=== PATIENT | male | born 1955 | race Caucasian/White ===

== ENCOUNTER → 2018-07-15 15:20 | Outpatient (CLI) | payer OTHER, SELFPAY ==
[2018-07-15 15:45] LABS: Add Manual Diff / Slide Review NO; Basophils Percent Auto 0.6 % (0-2); Eosinophils Percent Auto 1.3 % (2-4); Hematocrit 45.4 % (41-53); Hemoglobin 15.4 g/dL (13.5-17.5); Lymphocytes Percent Auto 16.7 % (25-40); Mean Corpuscular Hemoglobin 31.4 PG (26-34); Mean Corpuscular Volume 92.5 fL (80-100); Monocytes Percent Auto 6.3 % (3-14); Neutrophils Absolute Auto 5600 /uL (1500-7000); Neutrophils Percent Auto 75.1 % (50-75); Platelet Count 289 X10^3/uL (150-400); Red Blood Cell Count 4.91 X10^6/uL (4.5-5.9); Red Cell Distribution Width 13.3 % (11.6-14.8); White Blood Cell Count 7.5 X10^3/uL (4.5-11.0)
[2018-07-15 16:05] LABS: Alanine Aminotransferase 25 IU/L (21-72); Albumin 4.6 g/dL (3.5-5.0); Alkaline Phosphatase 88 U/L (38-126); Aspartate Aminotransferase 20 IU/L (17-59); Bilirubin Total 0.6 mg/dL (0.2-1.3); Blood Urea Nitrogen 14 mg/dL (9-20); Calcium 9.8 mg/dL (8.4-10.2); Carbon Dioxide 30 mmol/L (22-32); Chloride 100 mmol/L (98-107); Cholesterol 163 mg/dL (140-199); Estimated Glomerular Filt Rate > 60.0 mL/min (>60); Globulin 2.3 g/dL (1.7-4.1); Glucose 105 mg/dL (80-110); HDL Cholesterol 62 mg/dL (40-60); HEMOLYSIS < 15 (0-50); LDL Cholesterol Calculated 82 mg/dL (<100); Potassium 4.8 mmol/L (3.4-5.1); Sodium 143 mmol/L (137-145); Total Protein 6.9 g/dL (6.3-8.2); Triglycerides 96 mg/dL (35-150)
[2018-07-15 16:36] LABS: Prostate Specific Antigen Scrn 1.89 ng/mL (0.1-4.0)
== END ==
PROVIDERS: PCP Internal Medicine; Visit Provider Internal Medicine
DX: Z00.00 Encounter for general adult medical examination without abnormal findings (principal); Z12.5 Encounter for screening for malignant neoplasm of prostate; Z13.6 Encounter for screening for cardiovascular disorders
CPT/HCPCS: 36415; 80053; 80061; 85025; G0103

== ENCOUNTER 2019-01-29 03:54 | Inpatient (IN) | payer OTHER, SELFPAY ==
[2019-01-29] VITALS (10 sets, daily range): BP systolic 112–145; BP diastolic 62–93; PULSE 80–112; RESP 16–23; TEMP 36.4–37.1; O2SAT 95–100; BMI 25.5; BMI 25.9
--- NOTE | 2019-01-29 04:08 | DI.RAD.S_ITS ---
PROCEDURE: XR CHEST 1V INDICATIONS: short of breath TECHNIQUE: One view of the chest was acquired. COMPARISON: [facility], CR, CHEST 1 VIEW, 07/25/2008, 20:07. [facility], CT, CT ANGIO CHEST PE PROTOCOL, 01/29/2019, 4:49. [facility], CR, CHEST 1 VIEW, 06/17/2013, 14:29. FINDINGS: Surgical changes and devices: None. Lungs and pleura: Left midlung infiltrate is seen. No right lung abnormality is seen. No pneumothorax or pleural effusions are seen. Mediastinum: Mediastinal contours appear normal. Heart size is normal. Bones and chest wall: No suspicious bony lesions. Age-appropriate bony degenerative changes are seen. Overlying soft tissues appear unremarkable. IMPRESSION: Left midlung infiltrate is seen, with better demonstrated on the subsequently performed chest CT. Note: No significant discrepancy from the preliminary report. Dictated by: Dagoberto Moss M.D. on 01/29/2019 at 7:46 Approved by: Dagoberto Moss M.D. on 01/29/2019 at 7:47
--- NOTE | 2019-01-29 04:09 | ED.SOB ---
HPI - SOB/Dyspnea General Chief Complaint: Shortness of Breath/Dyspnea Stated Complaint: hiccups x3 days Time Seen by Provider: 01/29/19 04:07 Source: patient Mode of arrival: ambulatory Limitations: no limitations History of Present Illness Patient is a 63-year-old male who presents with pickups ongoing for last 3 days. He says whenever he gets some he gets short of breath. He has not slept, which seems to be is because complaint. He does not really have any chest pain or palpitations. Every time he stands up or moves he is extremely lightheaded, he has not passed out. He was coughing quite violently a few days ago he was placed on Levaquin by his PCP for bronchitis. He actually has said that he has had a cough for the last 3 weeks. He had some body aches really has not noticed a fever. He says once he started the antibiotics a cough loosened up and he now is having more productive sputum. MD Complaint: shortness of breath Relieving factors: nothing Related Data Home Medications Medication Instructions Recorded Confirmed bupropion HCl XL 150 mg 24 hr 150 mg PO QDAY #30 tab 07/07/18 01/29/19 tablet, extended release dextroamphetamine-amphetamine ER 30 mg PO QAM 07/07/18 01/29/19 30 mg 24hr capsule,extend release sertraline 100 mg tablet 100 mg PO DAILY 07/07/18 01/29/19 Previous Rx's Medication Instructions Recorded levofloxacin 500 mg tablet 500 mg PO DAILY #7 tab 01/26/19 Allergies Allergy/AdvReac Type Severity Reaction Status Date / Time No Known Drug Allergies Allergy Verified 01/29/19 04:11 Review of Systems Review of Systems ROS Unobtainable: All systems reviewed & are unremarkable except as noted in HPI and below Constitutional Denies chills, Denies fever(s), Denies lethargy and Denies weakness ENT Ears, Nose, Mouth, and Throat: Denies change in voice, Denies neck pain and Denies sore throat Cardiovascular Denies chest pain, Denies irregular heart rhythm, Denies lightheadedness, Denies palpitations and Denies orthopnea Respiratory Reports as per HPI Gastrointestinal Gastrointestinal: Denies abdominal pain, Denies change in bowel habits, Denies diarrhea, Denies nausea and Denies vomiting Musculoskeletal Denies neck pain Integumentary/Breasts Denies pruritus, Denies erythema, Denies rash and Denies wounds Neurologic Denies weakness Endocrine Denies palpitations [facility] Medical History ADHD (Chronic) Generalized anxiety disorder (Chronic) Diverticulosis of colon (Chronic) Hx of adenomatous colonic polyps (Chronic) Near sighted (Chronic) Neck arthritis (Chronic) Cystocele (Resolved) Fever (Resolved) Hepatitis (Resolved) Inguinal hernia (Resolved) Measles (Resolved) Surgical History Anesthesia (Resolved) History of surgery (Resolved) Family History Brother Agent orange exposure Social History Smoking Status: Never smoker Family History Brother Agent orange exposure Social History Smoking Status: Never smoker Exam Initial Vital Signs Initial Vital Signs: Vital Signs Temperature 98.6 F 01/29/19 04:00 Pulse Rate 112 H 01/29/19 04:00 Respiratory Rate 16 01/29/19 04:00 Blood Pressure 145/93 H 01/29/19 04:00 Pulse Oximetry 100 01/29/19 04:00 GENERAL: Well-appearing, well-nourished and in no acute distress. HEENT: Head atraumatic,EOMI, pupils reactive, CARDIOVASCULAR: Regular rate and rhythm without murmurs, rubs or gallops. RESPIRATORY: Clear bilaterally no wheezing he actually does become quite dyspneic in conversation and sitting up. ABDOMEN: Soft, nontender. Normoactive bowel sounds all 4 quadrants. No guarding or rebound. EXTREMITIES: Normal range of motion, no clubbing or edema. Neurovascularly intact NEUROLOGICAL: Alert and oriented x4.Normal gait and speech. Cranial nerves II through XII grossly intact. SKIN: Warm, dry, no laceration, no petechiae, no rashes or lesions. Course Orders Ordered: ED Orders 01/29/19 04:07 Consult to Respiratory Therapy Evaluate & Treat EKG-12 Lead Stat 01/29/19 04:08 XR chest 1V Stat 01/29/19 04:15 B Type Natriuretic Peptide Stat Complete Blood Count AUTO DIFF Stat Comprehensive Metabolic Panel Stat D Dimer Stat Magnesium Stat Partial Thromboplastin Time Stat Procalcitonin Stat Prothrombin Time INR Stat Troponin & CK Cardiac Panel Stat 01/29/19 04:32 Blood Culture Stat 01/29/19 04:36 CT angio chest PE protocol Stat 01/29/19 04:37 Lactate (Lactic Acid) Stat Sodium Chloride (Normal Saline 0.9%) 1,000 mls @ 150 mls/hr IV CONT PILO Last Infusion: 01/29/19 06:02 Dose: 150 mls/hr Infusion: 01/29/19 05:27 Dose: 300 mls/hr Admin: 01/29/19 05:05 Dose: 150 mls/hr Discontinued Medications Azithromycin 500 mg/ Dextrose 250 mls @ 250 mls/hr IV NOW ONE Stop: 01/29/19 05:13 Last Admin: 01/29/19 06:02 Dose: 250 mls/hr Ceftriaxone Sodium/Dextrose (Rocephin) 1 gm in 50 mls @ 100 mls/hr IV NOW ONE Stop: 01/29/19 05:41 Last Infusion: 01/29/19 05:56 Dose: 0 mls/hr Admin: 01/29/19 05:26 Dose: 100 mls/hr Lorazepam (Ativan) 0.5 mg IV NOW ONE Stop: 01/29/19 06:06 Last Admin: 01/29/19 06:31 Dose: 0.5 mg Pantoprazole Sodium (Protonix) 40 mg IV NOW ONE Stop: 01/29/19 04:46 Last Admin: 01/29/19 05:05 Dose: 40 mg Vital Signs - 8 hr 01/29/19 04:00 01/29/19 04:30 01/29/19 05:11 Temperature 98.6 F Pulse Rate 112 H 112 H 108 H Respiratory Rate 16 Blood Pressure 145/93 H Blood Pressure [Right Arm] 138/68 136/67 Pulse Oximetry 100 01/29/19 06:00 01/29/19 06:30 Temperature Pulse Rate 105 H 103 H Respiratory Rate Blood Pressure Blood Pressure [Right Arm] 129/62 117/63 Pulse Oximetry MDM - SOB/Dyspnea Lab Data Attestation: I reviewed the patient's lab results. Result diagrams: 01/29/19 04:15 01/29/19 04:15 Lab Results 07/01/29/19 01/29/19 Range/Units 04:15 04:15 04:15 WBC 19.3 H (4.5-11.0) X10^3/uL RBC 4.27 L (4.5-5.9) X10^6/uL Hgb 12.2 L (13.5-17.5) g/dL Hct 36.6 L (41-53) % MCV 85.7 (80-100) fL MCH 28.5 (26-34) PG MCHC 33.3 (30-36) % RDW 14.0 (11.6-14.8) % Plt Count 493 H (150-400) X10^3/uL Neut % (Auto) 90.7 H (50-75) % Lymph % (Auto) 4.7 L (25-40) % [place] % (Auto) 4.1 (3-14) % Eos % (Auto) 0.2 L (2-4) % Baso % (Auto) 0.3 (0-2) % Neut # (Auto) 69229 H (0935-4121) /uL Lymph # (Auto) 900 L (6947-6972) /uL [place] # (Auto) 800 (0-900) /uL Eos # (Auto) 0 (0-450) /uL Baso # (Auto) 100 (0-100) /uL PT 17.8 H (10.1-12.7) SECONDS INR 1.5 H (0.9-1.3) APTT 31 (26.4-36.2) SECONDS D-Dimer (<230) ng/mL Sodium (137-145) mmol/L Potassium (3.4-5.1) mmol/L Chloride (98-107) mmol/L Carbon Dioxide (22-32) mmol/L BUN (9-20) mg/dL Creatinine (0.66-1.25) mg/dL Estimated GFR (>60) mL/min BUN/Creatinine Ratio (6-22) Glucose (80-110) mg/dL Lactate (0.7-2.1) mmol/L Calcium (8.4-10.2) mg/dL Magnesium 1.8 (1.6-2.3) mg/dL Total Bilirubin (0.2-1.3) mg/dL AST (17-59) IU/L ALT (21-72) IU/L Alkaline Phosphatase (38-126) U/L Total Creatine Kinase 259 H (55-170) U/L CK-MB (CK-2) 2.51 H (<2.37) ng/mL CK-MB (CK-2) Rel Index 1.0 L (1.5-5.0) % Troponin I < 0.012 (0.01-0.034) ng/mL B-Natriuretic Peptide < 100 (<100) Total Protein (6.3-8.2) g/dL Albumin (3.5-5.0) g/dL Globulin (1.7-4.1) g/dL Albumin/Globulin Ratio (1.0-2.8) Procalcitonin (<0.5) ng/mL 01/29/19 01/29/19 01/29/19 Range/Units 04:15 04:15 04:15 WBC (4.5-11.0) X10^3/uL RBC (4.5-5.9) X10^6/uL Hgb (13.5-17.5) g/dL Hct (41-53) % MCV (80-100) fL MCH (26-34) PG MCHC (30-36) % RDW (11.6-14.8) % Plt Count (150-400) X10^3/uL Neut % (Auto) (50-75) % Lymph % (Auto) (25-40) % [place] % (Auto) (3-14) % Eos % (Auto) (2-4) % Baso % (Auto) (0-2) % Neut # (Auto) (0631-4822) /uL Lymph # (Auto) (5594-8592) /uL [place] # (Auto) (0-900) /uL Eos # (Auto) (0-450) /uL Baso # (Auto) (0-100) /uL PT (10.1-12.7) SECONDS INR (0.9-1.3) APTT (26.4-36.2) SECONDS D-Dimer 1007 H (<230) ng/mL Sodium 137 (137-145) mmol/L Potassium 3.9 (3.4-5.1) mmol/L Chloride 97 L (98-107) mmol/L Carbon Dioxide 24 (22-32) mmol/L BUN 14 (9-20) mg/dL Creatinine 0.90 (0.66-1.25) mg/dL Estimated GFR > 60.0 (>60) mL/min BUN/Creatinine Ratio 15.6 (6-22) Glucose 130 H (80-110) mg/dL Lactate (0.7-2.1) mmol/L Calcium 9.3 (8.4-10.2) mg/dL Magnesium (1.6-2.3) mg/dL Total Bilirubin 0.8 (0.2-1.3) mg/dL AST 24 (17-59) IU/L ALT 28 (21-72) IU/L Alkaline Phosphatase 92 (38-126) U/L Total Creatine Kinase (55-170) U/L CK-MB (CK-2) (<2.37) ng/mL CK-MB (CK-2) Rel Index (1.5-5.0) % Troponin I (0.01-0.034) ng/mL B-Natriuretic Peptide (<100) Total Protein 6.8 (6.3-8.2) g/dL Albumin 3.6 (3.5-5.0) g/dL Globulin 3.2 (1.7-4.1) g/dL Albumin/Globulin Ratio 1.1 (1.0-2.8) Procalcitonin 0.07 (<0.5) ng/mL 01/29/19 Range/Units 04:37 WBC (4.5-11.0) X10^3/uL RBC (4.5-5.9) X10^6/uL Hgb (13.5-17.5) g/dL Hct (41-53) % MCV (80-100) fL MCH (26-34) PG MCHC (30-36) % RDW (11.6-14.8) % Plt Count (150-400) X10^3/uL Neut % (Auto) (50-75) % Lymph % (Auto) (25-40) % [place] % (Auto) (3-14) % Eos % (Auto) (2-4) % Baso % (Auto) (0-2) % Neut # (Auto) (5827-1458) /uL Lymph # (Auto) (8995-3800) /uL [place] # (Auto) (0-900) /uL Eos # (Auto) (0-450) /uL Baso # (Auto) (0-100) /uL PT (10.1-12.7) SECONDS INR (0.9-1.3) APTT (26.4-36.2) SECONDS D-Dimer (<230) ng/mL Sodium (137-145) mmol/L Potassium (3.4-5.1) mmol/L Chloride (98-107) mmol/L Carbon Dioxide (22-32) mmol/L BUN (9-20) mg/dL Creatinine (0.66-1.25) mg/dL Estimated GFR (>60) mL/min BUN/Creatinine Ratio (6-22) Glucose (80-110) mg/dL Lactate 1.4 (0.7-2.1) mmol/L Calcium (8.4-10.2) mg/dL Magnesium (1.6-2.3) mg/dL Total Bilirubin (0.2-1.3) mg/dL AST (17-59) IU/L ALT (21-72) IU/L Alkaline Phosphatase (38-126) U/L Total Creatine Kinase (55-170) U/L CK-MB (CK-2) (<2.37) ng/mL CK-MB (CK-2) Rel Index (1.5-5.0) % Troponin I (0.01-0.034) ng/mL B-Natriuretic Peptide (<100) Total Protein (6.3-8.2) g/dL Albumin (3.5-5.0) g/dL Globulin (1.7-4.1) g/dL Albumin/Globulin Ratio (1.0-2.8) Procalcitonin (<0.5) ng/mL Imaging Data Chest x-ray: Attestation: I personally reviewed and interpreted this imaging study as follows: My impression: Left middle lobe pneumonia CT scan - chest: Radiologist's impression: shift supervisor melting report. Large masslike consolidation within the left upper lobe most consistent with pneumonia. Underlying mass cannot be excluded and followup complete resolution is recommended. Small right upper lobe ground-glass opacities likely small pneumonia. Small pericardial effusion. Nonemergent findings described above. No pulmonary emboli. ECG Data Attestation: I personally reviewed and interpreted this ECG as follows: Prior ECG tracings: available for review Interpretation: Sinus tachycardia [address] changes MDM Narrative Medical decision making narrative: No hiccups appreciated upon initial questioning, however they started soon after. X-ray shows all large masslike area. D-dimer is also elevated and he is quite dyspneic with conversation. Will get CT. CT confirms pneumonia no pulmonary embolism. He has leukocytosis of 19 but is not septic in appearance heart rate is improving with IV fluids however still complaining of the hiccups and seems quite frustrated. Given Ativan for hiccups. His failed outpatient treatment he did get Rocephin and azithromycin. he is not hypoxic. Dr. Schroeder notified of patient's symptoms test results. Agrees with admission. Discharge Plan Departure Patient Disposition: Admitted As Inpatient Clinical Impression: Pneumonia Qualifiers: Pneumonia type: due to unspecified organism Laterality: left Lung location: upper lobe of lung Qualified Code(s): J18.1 - Lobar pneumonia, unspecified organism Referrals: Bright Ruano MD [Primary Care Provider] - Admit Date/Time: 01/29/19 06:44 Admit Provider: Annalise Schroeder
--- NOTE | 2019-01-29 04:13 | ED_ITS ---
HPI - SOB/Dyspnea General Chief Complaint: Shortness of Breath/Dyspnea Stated Complaint: hiccups x3 days Time Seen by Provider: 01/29/19 04:07 Source: patient Mode of arrival: ambulatory Limitations: no limitations History of Present Illness Patient is a 63-year-old male who presents with pickups ongoing for last 3 days. He says whenever he gets some he gets short of breath. He has not slept, which seems to be is because complaint. He does not really have any chest pain or palpitations. Every time he stands up or moves he is extremely lightheaded, he has not passed out. He was coughing quite violently a few days ago he was place d on Levaquin by his PCP for bronchitis. He actually has said that he has had a cough for the last 3 weeks. He had some body aches really has not noticed a fever. He says once he started the antibiotics a cough loosened up and he now is having more productive sputum. MD Complaint: shortness of breath Relieving factors: nothing Related Data Home Medications Medication Instructions Recorded Confirmed bupropion HCl XL 150 mg 24 hr 150 mg PO QDAY #30 tab 07/07/18 01/29/19 tablet, extended release dextroamphetamine-amphetamine ER 30 mg PO QAM 07/07/18 01/29/19 30 mg 24hr capsule,extend release sertraline 100 mg tablet 100 mg PO DAILY 07/07/18 01/29/19 Previous Rx's Medication Instructions Recorded levofloxacin 500 mg tablet 500 mg PO DAILY #7 tab 01/26/19 Allergies Allergy/AdvReac Type Severity Reaction Status Date / Time No Known Drug Allergies Allergy Verified 01/29/19 04:11 Review of Systems Review of Systems ROS Unobtainable: All systems reviewed & are unremarkable except as noted in HPI and below Constitutional Denies chills, Denies fever(s), Denies lethargy and Denies weakness ENT Ears, Nose, Mouth, and Throat: Denies change in voice, Denies neck pain and Denies sore throat Cardiovascular Denies chest pain, Denies irregular heart rhythm, Denies lightheadedness, Denies palpitations and Denies orthopnea Respiratory Reports as per HPI Gastrointestinal Gastrointestinal: Denies abdominal pain, Denies change in bowel habits, Denies diarrhea, Denies nausea and Denies vomiting Musculoskeletal Denies neck pain Integumentary/Breasts Denies pruritus, Denies erythema, Denies rash and Denies wounds Neurologic Denies weakness Endocrine Denies palpitations [facility] Medical History ADHD (Chronic) Generalized anxiety disorder (Chronic) Diverticulosis of colon (Chronic) Hx of adenomatous colonic polyps (Chronic) Near sighted (Chronic) Neck arthritis (Chronic) Cystocele (Resolved) Fever (Resolved) Hepatitis (Resolved) Inguinal hernia (Resolved) Measles (Resolved) Surgical History Anesthesia (Resolved) History of surgery (Resolved) Family History Brother Agent orange exposure Social History Smoking Status: Never smoker Family History Brother Agent orange exposure Social History Smoking Status: Never smoker Exam Initial Vital Signs Initial Vital Signs: Vital Signs Temperature 98.6 F 01/29/19 04:00 Pulse Rate 112 H 01/29/19 04:00 Respiratory Rate 16 01/29/19 04:00 Blood Pressure 145/93 H 01/29/19 04:00 Pulse Oximetry 100 01/29/19 04:00 GENERAL: Well-appearing, well-nourished and in no acute distress. HEENT: Head atraumatic,EOMI, pupils reactive, CARDIOVASCULAR: Regular rate and rhythm without murmurs, rubs or gallops. RESPIRATORY: Clear bilaterally no wheezing he actually does become quite dyspneic in conversation and sitting up. ABDOMEN: Soft, nontender. Normoactive bowel sounds all 4 quadrants. No guarding or rebound. EXTREMITIES: Normal range of motion, no clubbing or edema. Neurovascularly intact NEUROLOGICAL: Alert and oriented x4.Normal gait and speech. Cranial nerves II through XII grossly intact. SKIN: Warm, dry, no laceration, no petechiae, no rashes or lesions. Course Orders Ordered: ED Orders 01/29/19 04:07 Consult to Respiratory Therapy Evaluate & Treat EKG-12 Lead Stat 01/29/19 04:08 XR chest 1V Stat 01/29/19 04:15 B Type Natriuretic Peptide Stat Complete Blood Count AUTO DIFF Stat Comprehensive Metabolic Panel Stat D Dimer Stat Magnesium Stat Partial Thromboplastin Time Stat Procalcitonin Stat Prothrombin Time INR Stat Troponin & CK Cardiac Panel Stat 01/29/19 04:32 Blood Culture Stat 01/29/19 04:36 CT angio chest PE protocol Stat 01/29/19 04:37 Lactate (Lactic Acid) Stat Sodium Chloride (Normal Saline 0.9%) 1,000 mls @ 150 mls/hr IV CONT PILO Last Infusion: 01/29/19 06:02 Dose: 150 mls/hr Infusion: 01/29/19 05:27 Dose: 300 mls/hr Admin: 01/29/19 05:05 Dose: 150 mls/hr Discontinued Medications Azithromycin 500 mg/ Dextrose 250 mls @ 250 mls/hr IV NOW ONE Stop: 01/29/19 05:13 Last Admin: 01/29/19 06:02 Dose: 250 mls/hr Ceftriaxone Sodium/Dextrose (Rocephin) 1 gm in 50 mls @ 100 mls/hr IV NOW ONE Stop: 01/29/19 05:41 Last Infusion: 01/29/19 05:56 Dose: 0 mls/hr Admin: 01/29/19 05:26 Dose: 100 mls/hr Lorazepam (Ativan) 0.5 mg IV NOW ONE Stop: 01/29/19 06:06 Last Admin: 01/29/19 06:31 Dose: 0.5 mg Pantoprazole Sodium (Protonix) 40 mg IV NOW ONE Stop: 01/29/19 04:46 Last Admin: 01/29/19 05:05 Dose: 40 mg Vital Signs - 8 hr 01/29/19 04:00 01/29/19 04:30 01/29/19 05:11 Temperature 98.6 F Pulse Rate 112 H 112 H 108 H Respiratory Rate 16 Blood Pressure 145/93 H Blood Pressure [Right Arm] 138/68 136/67 Pulse Oximetry 100 01/29/19 06:00 01/29/19 06:30 Temperature Pulse Rate 105 H 103 H Respiratory Rate Blood Pressure Blood Pressure [Right Arm] 129/62 117/63 Pulse Oximetry MDM - SOB/Dyspnea Lab Data Attestation: I reviewed the patient's lab results. Result diagrams: 01/29/19 04:15 01/29/19 04:15 Lab Results 0701/29/19 01/29/19 Range/Units 04:15 04:15 04:15 WBC 19.3 H (4.5-11.0) X10^3/uL RBC 4.27 L (4.5-5.9) X10^6/uL Hgb 12.2 L (13.5-17.5) g/dL Hct 36.6 L (41-53) % MCV 85.7 (80-100) fL MCH 28.5 (26-34) PG MCHC 33.3 (30-36) % RDW 14.0 (11.6-14.8) % Plt Count 493 H (150-400) X10^3/uL Neut % (Auto) 90.7 H (50-75) % Lymph % (Auto) 4.7 L (25-40) % [place] % (Auto) 4.1 (3-14) % Eos % (Auto) 0.2 L (2-4) % Baso % (Auto) 0.3 (0-2) % Neut # (Auto) 60221 H (0305-4850) /uL Lymph # (Auto) 900 L (0509-1425) /uL [place] # (Auto) 800 (0-900) /uL Eos # (Auto) 0 (0-450) /uL Baso # (Auto) 100 (0-100) /uL PT 17.8 H (10.1-12.7) SECONDS INR 1.5 H (0.9-1.3) APTT 31 (26.4-36.2) SECONDS D-Dimer (<230) ng/mL Sodium (137-145) mmol/L Potassium (3.4-5.1) mmol/L Chloride (98-107) mmol/L Carbon Dioxide (22-32) mmol/L BUN (9-20) mg/dL Creatinine (0.66-1.25) mg/dL Estimated GFR (>60) mL/min BUN/Creatinine Ratio (6-22) Glucose (80-110) mg/dL Lactate (0.7-2.1) mmol/L Calcium (8.4-10.2) mg/dL Magnesium 1.8 (1.6-2.3) mg/dL Total Bilirubin (0.2-1.3) mg/dL AST (17-59) IU/L ALT (21-72) IU/L Alkaline Phosphatase (38-126) U/L Total Creatine Kinase 259 H (55-170) U/L CK-MB (CK-2) 2.51 H (<2.37) ng/mL CK-MB (CK-2) Rel Index 1.0 L (1.5-5.0) % Troponin I < 0.012 (0.01-0.034) ng/mL B-Natriuretic Peptide < 100 (<100) Total Protein (6.3-8.2) g/dL Albumin (3.5-5.0) g/dL Globulin (1.7-4.1) g/dL Albumin/Globulin Ratio (1.0-2.8) Procalcitonin (<0.5) ng/mL 01/29/19 01/29/19 01/29/19 Range/Units 04:15 04:15 04:15 WBC (4.5-11.0) X10^3/uL RBC (4.5-5.9) X10^6/uL Hgb (13.5-17.5) g/dL Hct (41-53) % MCV (80-100) fL MCH (26-34) PG MCHC (30-36) % RDW (11.6-14.8) % Plt Count (150-400) X10^3/uL Neut % (Auto) (50-75) % Lymph % (Auto) (25-40) % [place] % (Auto) (3-14) % Eos % (Auto) (2-4) % Baso % (Auto) (0-2) % Neut # (Auto) (2776-9642) /uL Lymph # (Auto) (1342-2192) /uL [place] # (Auto) (0-900) /uL Eos # (Auto) (0-450) /uL Baso # (Auto) (0-100) /uL PT (10.1-12.7) SECONDS INR (0.9-1.3) APTT (26.4-36.2) SECONDS D-Dimer 1007 H (<230) ng/mL Sodium 137 (137-145) mmol/L Potassium 3.9 (3.4-5.1) mmol/L Chloride 97 L (98-107) mmol/L Carbon Dioxide 24 (22-32) mmol/L BUN 14 (9-20) mg/dL Creatinine 0.90 (0.66-1.25) mg/dL Estimated GFR > 60.0 (>60) mL/min BUN/Creatinine Ratio 15.6 (6-22) Glucose 130 H (80-110) mg/dL Lactate (0.7-2.1) mmol/L Calcium 9.3 (8.4-10.2) mg/dL Magnesium (1.6-2.3) mg/dL Total Bilirubin 0.8 (0.2-1.3) mg/dL AST 24 (17-59) IU/L ALT 28 (21-72) IU/L Alkaline Phosphatase 92 (38-126) U/L Total Creatine Kinase (55-170) U/L CK-MB (CK-2) (<2.37) ng/mL CK-MB (CK-2) Rel Index (1.5-5.0) % Troponin I (0.01-0.034) ng/mL B-Natriuretic Peptide (<100) Total Protein 6.8 (6.3-8.2) g/dL Albumin 3.6 (3.5-5.0) g/dL Globulin 3.2 (1.7-4.1) g/dL Albumin/Globulin Ratio 1.1 (1.0-2.8) Procalcitonin 0.07 (<0.5) ng/mL 01/29/19 Range/Units 04:37 WBC (4.5-11.0) X10^3/uL RBC (4.5-5.9) X10^6/uL Hgb (13.5-17.5) g/dL Hct (41-53) % MCV (80-100) fL MCH (26-34) PG MCHC (30-36) % RDW (11.6-14.8) % Plt Count (150-400) X10^3/uL Neut % (Auto) (50-75) % Lymph % (Auto) (25-40) % [place] % (Auto) (3-14) % Eos % (Auto) (2-4) % Baso % (Auto) (0-2) % Neut # (Auto) (6162-5439) /uL Lymph # (Auto) (4880-2922) /uL [place] # (Auto) (0-900) /uL Eos # (Auto) (0-450) /uL Baso # (Auto) (0-100) /uL PT (10.1-12.7) SECONDS INR (0.9-1.3) APTT (26.4-36.2) SECONDS D-Dimer (<230) ng/mL Sodium (137-145) mmol/L Potassium (3.4-5.1) mmol/L Chloride (98-107) mmol/L Carbon Dioxide (22-32) mmol/L BUN (9-20) mg/dL Creatinine (0.66-1.25) mg/dL Estimated GFR (>60) mL/min BUN/Creatinine Ratio (6-22) Glucose (80-110) mg/dL Lactate 1.4 (0.7-2.1) mmol/L Calcium (8.4-10.2) mg/dL Magnesium (1.6-2.3) mg/dL Total Bilirubin (0.2-1.3) mg/dL AST (17-59) IU/L ALT (21-72) IU/L Alkaline Phosphatase (38-126) U/L Total Creatine Kinase (55-170) U/L CK-MB (CK-2) (<2.37) ng/mL CK-MB (CK-2) Rel Index (1.5-5.0) % Troponin I (0.01-0.034) ng/mL B-Natriuretic Peptide (<100) Total Protein (6.3-8.2) g/dL Albumin (3.5-5.0) g/dL Globulin (1.7-4.1) g/dL Albumin/Globulin Ratio (1.0-2.8) Procalcitonin (<0.5) ng/mL Imaging Data Chest x-ray: Attestation: I personally reviewed and interpreted this imaging study as follows: My impression: Left middle lobe pneumonia CT scan - chest: 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 Large masslike consolidation within the left upper lobe most consistent with pneumonia. Underlying mass cannot be excluded and followup complete resolution is recommended. Small right upper lobe ground-glass opacities likely small pneumonia. Small pericardial effusion. Nonemergent findings described above. No pulmonary emboli. ECG Data Attestation: I personally reviewed and interpreted this ECG as follows: Prior ECG tracings: available for review Interpretation: Sinus tachycardia [address] changes MDM Narrative Medical decision making narrative: No hiccups appreciated upon initial questioning, however they started soon after. X-ray shows all large masslike area. D-dimer is also elevated and he is quite dyspneic with conversation. Will get CT. CT confirms pneumonia no pulmonary embolism. He has leukocytosis of 19 but is not septic in appearance heart rate is improving with IV fluids however still complaining of the hiccups and seems quite frustrated. Given Ativan for hiccups. His failed outpatient treatment he did get Rocephin and azithromycin. he is not hypoxic. Dr. Schroeder notified of patient's symptoms test results. Agrees with admission. Discharge Plan Departure Patient Disposition: Admitted As Inpatient Clinical Impression: Pneumonia Qualifiers: Pneumonia type: due to unspecified organism Laterality: left Lung location: upper lobe of lung Qualified Code(s): J18.1 - Lobar pneumonia, unspecified organism Referrals: Bright Ruano MD [Primary Care Provider] - Admit Date/Time: 01/29/19 06:44 Admit Provider: Annalise Schroeder
[2019-01-29 04:25] LABS: Add Manual Diff / Slide Review NO; Basophils Absolute Auto 100 /uL (0-100); Basophils Percent Auto 0.3 % (0-2); Eosinophils Absolute Auto 0 /uL (0-450); Eosinophils Percent Auto 0.2 % (2-4); Hematocrit 36.6 % (41-53); Hemoglobin 12.2 g/dL (13.5-17.5); Lymphocytes Absolute Auto 900 /uL (1100-4500); Lymphocytes Percent Auto 4.7 % (25-40); Mean Corpuscular HGB Conc 33.3 % (30-36); Mean Corpuscular Hemoglobin 28.5 PG (26-34); Mean Corpuscular Volume 85.7 fL (80-100); Monocytes Absolute Auto 800 /uL (0-900); Monocytes Percent Auto 4.1 % (3-14); Neutrophils Absolute Auto 17500 /uL (1500-7000); Neutrophils Percent Auto 90.7 % (50-75); Platelet Count 493 X10^3/uL (150-400); Red Blood Cell Count 4.27 X10^6/uL (4.5-5.9); White Blood Cell Count 19.3 X10^3/uL (4.5-11.0)
[2019-01-29 04:27] LABS: INR 1.5 (0.9-1.3); Prothrombin Time 17.8 SECONDS (10.1-12.7)
[2019-01-29 04:30] LABS: PTT Partial Thromboplastin Tim 31 SECONDS (26.4-36.2)
[2019-01-29 04:33] LABS: Creatine Kinase 259 U/L (55-170); Magnesium 1.8 mg/dL (1.6-2.3)
[2019-01-29 04:34] LABS: Alanine Aminotransferase 28 IU/L (21-72); Albumin 3.6 g/dL (3.5-5.0); Albumin Globulin Ratio 1.1 (1.0-2.8); Alkaline Phosphatase 92 U/L (38-126); Aspartate Aminotransferase 24 IU/L (17-59); BUN Creatinine Ratio 15.6 (6-22); Bilirubin Total 0.8 mg/dL (0.2-1.3); Blood Urea Nitrogen 14 mg/dL (9-20); Calcium 9.3 mg/dL (8.4-10.2); Carbon Dioxide 24 mmol/L (22-32); Chloride 97 mmol/L (98-107); Estimated Glomerular Filt Rate > 60.0 mL/min (>60); Globulin 3.2 g/dL (1.7-4.1); Glucose 130 mg/dL (80-110); HEMOLYSIS < 15 (0-50); Potassium 3.9 mmol/L (3.4-5.1); Sodium 137 mmol/L (137-145); Total Protein 6.8 g/dL (6.3-8.2)
--- NOTE | 2019-01-29 04:36 | DI.CT.S_ITS ---
PROCEDURE: CT ANGIO CHEST PE PROTOCOL INDICATIONS: short of breath TECHNIQUE: After the administration of intravenous contrast, 2 mm thick sections acquired from the pulmonary apices to the posterior costophrenic angles. 3-dimensional maximum intensity projection (MIP) coronal and sagittal reformats were then acquired through the thorax. For radiation dose reduction, the following was used: automated exposure control, adjustment of mA and/or kV according to patient size. COMPARISON: [facility], CR, XR CHEST 1V, 01/29/2019, 4:17. FINDINGS: Image quality: Excellent. Pulmonary arteries: Pulmonary arteries are normal in size, and demonstrate no intraluminal filling defects to suggest central pulmonary embolism. Lungs and pleura: Dense infiltrate can be seen within the lingula involving the left infrahilar region, which measures up to 7.5 cm. Bronchograms are seen. Within the right upper lobe, with mild scattered areas of groundglass opacity can be seen. The lungs otherwise appear clear. No pleural effusions or pneumothorax. Central and peripheral airways are patent. Mediastinum: Heart size is normal. There is a small pericardial effusion. Moderately enlarged mediastinal lymph nodes are seen, including a subcarinal lymph node measuring 2.4 x 1.9 cm. Thoracic aorta is normal in caliber and enhancement. Esophagus is normal in caliber. There is a small hiatal hernia. Bones and chest wall: No suspicious bony lesions. Ribs and thoracic spine appear intact throughout. Thyroid gland demonstrates no significant CT abnormality. No axillary or supraclavicular adenopathy. Incidental note is made of bilateral gynecomastia. Abdomen: A prominent amount of stool can be seen within the colon. Visualized upper abdominal solid organs appear normal in the early arterial phase of enhancement. IMPRESSION: Negative for pulmonary embolism. Lingular infiltrate, with air bronchograms. Followup studies are recommended to resolution to evaluate for potential underlying mass in this patient. Moderately enlarged mediastinal lymph nodes are seen. Minimal infiltrate within the right upper lobe. Small pericardial effusion. Incidental note is made of: Gynecomastia Small hiatal hernia Prominent colonic stool Note: No significant discrepancy from the preliminary report. Dictated by: Dagoberto Moss M.D. on 01/29/2019 at 7:29 Approved by: Dagoberto Moss M.D. on 01/29/2019 at 7:34
[2019-01-29 04:38] LABS: D Dimer 1007 ng/mL (<230)
[2019-01-29 04:45] LABS: Troponin I < 0.012 ng/mL (0.01-0.034)
[2019-01-29 04:46] LABS: B Type Natriuretic Peptide < 100 (<100)
[2019-01-29 04:48] LABS: Creatine Kinase MB 2.51 ng/mL (<2.37)
[2019-01-29 04:50] LABS: Procalcitonin 0.07 ng/mL (<0.5)
[2019-01-29 04:59] LABS: Lactate (Lactic Acid) 1.4 mmol/L (0.7-2.1)
[2019-01-29] MEDS: PANTOPRAZOLE 40 MG VIAL IV (05:05)
[2019-01-29] MEDS: SODIUM CHLORIDE 0.9% 1,000 ML 150 ML IV ×4 (05:05→21:56)
[2019-01-29] MEDS: CEFTRIAXONE 1 GM/50 ML FROZ.PIGGY IV (05:26)
--- NOTE | 2019-01-29 05:27 | PC.NURSE ---
verbal order read back to increase to bolus rate. Rate set at 300ml/hr for concurrent administration with abx.
[2019-01-29] MEDS: AZITHROMYCIN 500 MG in DEXTROSE 5% IN WATER 250 ML IV (06:02)
--- NOTE | 2019-01-29 06:02 | PC.NURSE ---
NS rate changed to 150ml/hr for concurrent infusion with azithromycin
[2019-01-29] MEDS: LORazepam 2 MG/ML INJ 0.5 MG IV (06:31)
--- NOTE | 2019-01-29 06:37 | PC.NURSE ---
pt presented with no hiccups yet reorted he had hicups for three days preventing him from sleeping. within 10 minutes of being in deartment hiccups returned and have persisted throughout his stay. At times he appears to have severe hicups that cause a gasping effect for air. Provider notified and ordered ativan.
--- NOTE | 2019-01-29 09:07 | PC.ADMIT ---
[email or web address] Admission Note: The patient,Prem Churchill,63 y/o, was given written information regarding hospital policies, unit procedures and contact persons. Patient's smoking status: Never smoker. Vital Signs - 8 hr 01/29/19 04:00 01/29/19 04:30 01/29/19 05:11 Temperature 98.6 F Pulse Rate 112 H 112 H 108 H Respiratory Rate 16 Blood Pressure 145/93 H Blood Pressure [Right Arm] 138/68 136/67 Pulse Oximetry 100 01/29/19 06:00 01/29/19 06:30 01/29/19 07:35 Temperature Pulse Rate 105 H 103 H 98 H Respiratory Rate 20 Blood Pressure 122/72 Blood Pressure [Right Arm] 129/62 117/63 Pulse Oximetry 99 01/29/19 07:45 Temperature 98.7 F Pulse Rate 102 H Respiratory Rate 23 Blood Pressure 135/75 Blood Pressure [Right Arm] Pulse Oximetry 98 Rec'd pt to room 106 from ED via stretcher in no acute distress. Pt able to stand, rise, and transfer to bed with steady gait and SBA. AO x3 and making needs known with clear, logical speech. Somewhat fidgety/restless but cooperative . Admission assessment completed (see chart). States came in for shortness of breath and c/o hiccups. Denies pain other than a minor sore throat from coughing. Reviewed allergies, hx, and med rec. Updated as needed. Oriented pt to room, use of call light, instructed to wait for assistance due to mult cords/wires. Pt declined use of safe for wallet/jewelry. Asked pt if he would like me to call his to notify her that he has been admitted. He declines stating she will call here soon.
--- NOTE | 2019-01-29 10:05 | PM.HP.1 ---
History of Present Illness Date Patient Seen: 01/29/19 Time Patient Seen: 10:05 Chief complaint: hiccups x3 days Narrative: 63-year-old male admitted with pneumonia. He presented to the emergency department with persistent hiccups which are interfering with sleep and he is beginning to feel short of breath at least in part due to the ongoing hiccuping. He has been having hiccups for 2+ days. He had been seen in the clinic by myself on the 26 of January. He had persistent cough but lack of other findings and minimally abnormal exam resulted in a prescription for oral Levaquin. With that he reported some increased sputum production but then the hiccups started and he reassessed. Denies any real recurrent fever. Maybe some low-grade fever, just about 100 which is what we saw in the clinic as well. No other additional symptoms Patient is a lifelong nonsmoker No unusual recent travel Patient History Medical History ADHD (Chronic) Generalized anxiety disorder (Chronic) Diverticulosis of colon (Chronic) Hx of adenomatous colonic polyps (Chronic) Meningitis (Acute) Near sighted (Chronic) Neck arthritis (Chronic) Cystocele (Resolved) Fever (Resolved) Hepatitis (Resolved) Inguinal hernia (Resolved) Measles (Resolved) Surgical History Anesthesia (Resolved) History of surgery (Resolved) Family History Brother Agent orange exposure Social History household members: spouse Smoking Status: Never smoker Family & Social History Family History Brother Agent orange exposure Social History: household members spouse Prior Living Arrangements House Safety & Behavioral: Feels Safe in Current Yes Environment Been Physically Hurt or No Threatened By a Person Suicidal Ideation Description None Suicide Plan Description No Plan Tobacco & Substance use: Smoking Status Never smoker alcohol intake frequency a few times a week Substance Use Type does not use Meds Home Medications Medication Instructions Recorded Confirmed Type bupropion HCl XL 150 mg 24 hr 150 mg PO QDAY #30 tab 07/07/18 01/29/19 History tablet, extended release dextroamphetamine-amphetamine ER 30 mg PO QAM 07/07/18 01/29/19 History 30 mg 24hr capsule,extend release sertraline 100 mg tablet 100 mg PO DAILY 07/07/18 01/29/19 History levofloxacin 500 mg tablet 500 mg PO DAILY #7 tab 01/26/19 01/29/19 Rx Allergies Allergy/AdvReac Type Severity Reaction Status Date / Time No Known Drug Allergies Allergy Verified 01/29/19 04:11 Review of Systems Constitutional Constitutional: Denies excessive sweating, Denies headache(s), Denies weakness, Denies weight gain and Denies weight loss Eyes Eyes: Denies change in vision, Denies itchy eyes, Denies loss of vision and Denies other visual disturbances ENT Ears, Nose, Mouth, and Throat: No difficulty swallowing, No headache(s) and No neck pain Cardiovascular Cardiovascular: Denies chest pain, Denies fainting, Denies fast heart rate, Denies irregular heart rhythm, Denies rapid, pounding, or irregular heartbeat, Reports shortness of breath and Denies slow heart rate Respiratory Respiratory: Reports cough, Denies hemoptysis, Denies excessive phlegm production, Denies pain on inspiration, Denies pain with cough, Reports dyspnea and Denies wheezing Gastrointestinal Gastrointestinal: Denies abdominal pain, Denies bloating, Reports change in bowel habits (Constipated), Denies change in stool character, Denies dysphagia, Denies nausea, Denies vomiting and Denies hematemesis Genitourinary Genitourinary: Denies hematuria, Denies difficulty urinating and Denies urinary frequency Musculoskeletal Musculoskeletal: Denies abnormal gait, Denies myalgias, Denies arthralgias, Denies limited range of motion and Denies neck pain Integumentary/Breasts Skin/Breast: Denies bleeding lesions, Denies change in pigmentation, Denies changing lesions, Denies new lesions, Denies rash, Denies skin swelling, Denies sores and Denies jaundice Neurologic Neurologic: Denies abnormal gait, Denies behavioral changes, Denies confusion, Denies syncope, Denies headache(s), Denies loss of vision, Denies memory loss and Denies weakness Psychiatric Psychiatric: Denies behavioral changes, Denies change in appetite, Denies confusion, Denies difficulty concentrating, Denies auditory hallucinations, Denies memory loss, Denies mood swings and Denies suicidal ideation Endocrine Endocrine: Denies excessive sweating and Denies palpitations Hematologic/Lymphatic Hematologic/Lymphatic: Denies easy bleeding, Denies easy bruising and Denies lymphadenopathy Allergic/Immunologic Allergic/Immunologic: Denies itchy eyes and Denies wheezing Exam Vital Signs (past 8 hours): - 01/29/19 04:00 01/29/19 04:30 01/29/19 05:11 Temperature 98.6 F Pulse Rate 112 H 112 H 108 H Respiratory Rate 16 Blood Pressure 145/93 H Blood Pressure [Right Arm] 138/68 136/67 Pulse Oximetry 100 01/29/19 06:00 01/29/19 06:30 01/29/19 07:35 Temperature Pulse Rate 105 H 103 H 98 H Respiratory Rate 20 Blood Pressure 122/72 Blood Pressure [Right Arm] 129/62 117/63 Pulse Oximetry 99 01/29/19 07:45 Temperature 98.7 F Pulse Rate 102 H Respiratory Rate 23 Blood Pressure 135/75 Blood Pressure [Right Arm] Pulse Oximetry 98 Oxygen Delivery Method Room Air Oxygen Flow Rate 0 Narrative Exam Narrative: HEENT-unremarkable, normocephalic atraumatic Neck-no lymphadenopathy no bruits Lungs-clear anteriorly and posteriorly no wheezes no crackles good breath sounds Heart-regular rate and rhythm, no murmur, rub, or gallop. normal S1-S2 Abdomen-positive bowel tones, soft, nontender, nondistended, no hepatosplenomegaly, no masses palpable Neuro-normal to screening exam, gait not tested Extremities-no cyanosis clubbing or edema Objective Labs Result Diagrams: 01/29/19 04:15 01/29/19 04:15 Labs: Laboratory Results - last 24 hr 01/29/19 01/29/19 01/29/19 04:15 04:15 04:15 WBC 19.3 H RBC 4.27 L Hgb 12.2 L Hct 36.6 L MCV 85.7 MCH 28.5 MCHC 33.3 RDW 14.0 Plt Count 493 H Neut % (Auto) 90.7 H Lymph % (Auto) 4.7 L [place] % (Auto) 4.1 Eos % (Auto) 0.2 L Baso % (Auto) 0.3 Neut # (Auto) 67708 H Lymph # (Auto) 900 L [place] # (Auto) 800 Eos # (Auto) 0 Baso # (Auto) 100 PT 17.8 H INR 1.5 H APTT 31 D-Dimer Sodium Potassium Chloride Carbon Dioxide BUN Creatinine Estimated GFR BUN/Creatinine Ratio Glucose Lactate Calcium Magnesium 1.8 Total Bilirubin AST ALT Alkaline Phosphatase Total Creatine Kinase 259 H CK-MB (CK-2) 2.51 H CK-MB (CK-2) Rel Index 1.0 L Troponin I < 0.012 B-Natriuretic Peptide < 100 Total Protein Albumin Globulin Albumin/Globulin Ratio Procalcitonin Nasal Screen MRSA (PCR) 01/29/19 01/29/19 01/29/19 04:15 04:15 04:15 WBC RBC Hgb Hct MCV MCH MCHC RDW Plt Count Neut % (Auto) Lymph % (Auto) [place] % (Auto) Eos % (Auto) Baso % (Auto) Neut # (Auto) Lymph # (Auto) [place] # (Auto) Eos # (Auto) Baso # (Auto) PT INR APTT D-Dimer 1007 H Sodium 137 Potassium 3.9 Chloride 97 L Carbon Dioxide 24 BUN 14 Creatinine 0.90 Estimated GFR > 60.0 BUN/Creatinine Ratio 15.6 Glucose 130 H Lactate Calcium 9.3 Magnesium Total Bilirubin 0.8 AST 24 ALT 28 Alkaline Phosphatase 92 Total Creatine Kinase CK-MB (CK-2) CK-MB (CK-2) Rel Index Troponin I B-Natriuretic Peptide Total Protein 6.8 Albumin 3.6 Globulin 3.2 Albumin/Globulin Ratio 1.1 Procalcitonin 0.07 Nasal Screen MRSA (PCR) 01/29/19 01/29/19 04:37 07:50 WBC RBC Hgb Hct MCV MCH MCHC RDW Plt Count Neut % (Auto) Lymph % (Auto) [place] % (Auto) Eos % (Auto) Baso % (Auto) Neut # (Auto) Lymph # (Auto) [place] # (Auto) Eos # (Auto) Baso # (Auto) PT INR APTT D-Dimer Sodium Potassium Chloride Carbon Dioxide BUN Creatinine Estimated GFR BUN/Creatinine Ratio Glucose Lactate 1.4 Calcium Magnesium Total Bilirubin AST ALT Alkaline Phosphatase Total Creatine Kinase CK-MB (CK-2) CK-MB (CK-2) Rel Index Troponin I B-Natriuretic Peptide Total Protein Albumin Globulin Albumin/Globulin Ratio Procalcitonin Nasal Screen MRSA (PCR) Negative for mrsa Assessment & Plan Assessment & Plan narrative: Patient with at this point community-acquired pneumonia failed outpatient therapy with Levaquin. Has a more masslike appearance to the findings on his chest x-ray and CT scan. However patient is a lifelong nonsmoker would be read more unusual to have a malignancy at this point. Continue treat as an infectious etiology with broad-spectrum IV antibiotics. If fails to improve over the next several days and/or worsens then consideration for bronchoscopy with direct culture etc would be appropriate. Unfortunately that would half to be done elsewhere as we do not have pulmonary medicine here to perform that service I believe his hiccup are result of the diaphragmatic irritation from the pneumonia. Hopefully as we treat the pneumonia that will improve Will try to obtain sputum sample for culture but statistically speaking that is extremely unlikely to be helpful in a non critically ill patient and even unlikely to be helpful in a critically ill patient which this is not I will continue patient's other usual medications including his antidepressants and his dextroamphetamine Will treat his bowels as needed with stool softeners and laxatives Patient receive Lovenox for VTE prophylaxis Patient more likely than not be in the hospital greater than 48 hours including 2 separate midnights, given the degree of his significant pneumonia on imaging as well as his unusual presenting symptoms and his failure to improve with outpatient therapies Quality VTE Deep Vein Thrombosis/Pulmonary Embolism Present on Admission: No
[2019-01-29] MEDS: LORazepam 2 MG/ML INJ 1 MG IV ×2 (11:16→14:56)
[2019-01-29] MEDS: MAGNESIUM HYDROXIDE 30 ML UDC PO (11:16)
[2019-01-29] MEDS: DOCUSATE 100 MG CAPSULE 200 MG PO ×2 (11:17→20:42)
[2019-01-29] MEDS: SERTRALINE 50 MG TABLET 100 MG PO (11:17)
[2019-01-29] MEDS: buPROPion XL 150 MG TAB PO (11:17)
--- NOTE | 2019-01-29 14:26 | CM.IDA ---
Initial DCP Assessment Note: Pt is a 63 yo male, resident of [place]. Pt admitted w/ pneumonia after failed outpt treatment attempt, treated now w/IV abx. PCP: Dr Ruano Payer: Aki. Reviewed chart. Pt presents w/ 3 days of hiccups which Dr Ruano suspects are result of the diaphragmatic irritation from the pneumonia. Pt indp and active at baseline, H+P significant for ADHD and anxiety disorder, medication list includes Wellbutrin and Zoloft. Spoke w/ RN Calixto, it is anticipated that pt will return home w/supportive family once medically cleared. Following closely for any DC needs or concerns that might arise. GWENDOLYN Kidd Discharge Planning/Care Management CM Discharge Assessment Start: 01/29/19 14:25 Freq: Status: Active Protocol: Document 01/29/19 14:25 DAVIS (Rec: 01/29/19 14:26 DAVIS [email or web address]) Discharge Planning Assessment Assigned Tip Cutter GWENDOLYN Burden DPOA/Assigned Designee Name Precious Churchill Contact Information [phone] Advance Directives? No History Provided By Patient Prior Living Arrangements House Household Members spouse Type of transporation used prior to Drives own vehicle admit Independent with ADL's Yes Is patient alert and oriented? Yes Barriers to Discharge No Discharge Plan Home Transportation Arrangement Spouse Referrals Initiated None needed Review Status In Process
[2019-01-29] MEDS: CEFTRIAXONE 2 GM/50 ML FROZ.PIGGY IV (18:27)
[2019-01-29] MEDS: Dextroamphetamine-Amphetamine 30 MG 30 EACH PO (20:43)
[2019-01-30] VITALS (7 sets, daily range): BP systolic 116–145; BP diastolic 65–83; PULSE 99–105; RESP 16–20; TEMP 36.2–37.7; O2SAT 93–98
[2019-01-30] MEDS: LORazepam 2 MG/ML INJ 1 MG IV ×2 (00:42→21:00)
[2019-01-30] MEDS: SODIUM CHLORIDE 0.9% 1,000 ML 150 ML IV (04:46)
[2019-01-30] MEDS: CEFTRIAXONE 2 GM/50 ML FROZ.PIGGY IV ×2 (04:46→18:17)
[2019-01-30] MEDS: AZITHROMYCIN 500 MG in DEXTROSE 5% IN WATER 250 ML IV (05:53)
--- NOTE | 2019-01-30 06:18 | PC.NURSE ---
Patient's sleep is restless but he states he sleeps well, snores and tosses and turns frequently. 1mg IV Ativan given at midnight for hiccups. HR 90s-105, RR 20s, Temp 99.8, SpO2 >94% on RA, has harsh productive cough with white sputum. Patient is forgetful, impulsive, and unsteady. Bed alarm has been on.
--- NOTE | 2019-01-30 08:19 | PM.PN.1 ---
Subjective Date Patient Seen: 01/30/19 Time Patient Seen: 08:19 Interval history: Patient had an uneventful day yesterday. Hiccups are definitely much reduced although certainly not absent as I watched him back up as we speak No respiratory symptoms at all. 1 exception of course would be a cough which once he gets started coughing he has significant coughing jags but overall is not short of breath not really bringing anything up with the sputum Exam Vital Signs (past 8 hours): - 01/30/19 00:39 01/30/19 06:00 01/30/19 07:56 Temperature 99.8 F H 98.9 F 97.6 F Pulse Rate 105 H 105 H Respiratory Rate 20 18 16 Blood Pressure 131/78 116/70 135/75 Pulse Oximetry 96 93 96 Oxygen Delivery Method Room Air Oxygen Flow Rate 0 Narrative Exam Narrative: Unchanged from previous Objective Labs Result Diagrams: 01/29/19 04:15 01/29/19 04:15 Labs: Laboratory Results - last 24 hr 01/29/19 07:50 Nasal Screen MRSA (PCR) Negative for mrsa Assessment & Plan Assessment & Plan narrative: 1. Community-acquired pneumonia-symptomatically and clinically seems improved. Again this is an unusual presentation, with minimal respiratory symptoms other than the hiccuping and really nothing on exam. His pneumonia on x-ray and CT appears quite atypical as well. At this point I would continue with current IV antibiotics and assuming he clinically remains stable to improved that he likely can be discharged sometime in the next 24-48 hours to complete a course of oral antibiotics. I would watch carefully to ensure complete resolution of his pneumonia on imaging and/or have a low threshold for referral to Pulmonary Medicine for consideration of bronchoscopy etc. Patient's other medical issues are stable continue his usual meds. Note: Greater than 20 minutes was spent evaluating the patient on the floor, including examining the patient, discussing clinical course with clinical and nursing staff, reviewing clinical course in the computer, preparing documentation and writing orders for continued management of care, discussing status with family as appropriate, reviewing plans for the next 24 hours with both patient/family and nursing staff as appropriate. Quality VTE Deep Vein Thrombosis/Pulmonary Embolism Present on Admission: No
[2019-01-30] MEDS: MAGNESIUM HYDROXIDE 30 ML UDC PO ×2 (08:49→19:11)
[2019-01-30] MEDS: DOCUSATE 100 MG CAPSULE 200 MG PO ×2 (08:49→20:56)
[2019-01-30] MEDS: Dextroamphetamine-Amphetamine 30 MG 30 EACH PO (08:49)
[2019-01-30] MEDS: SERTRALINE 50 MG TABLET 100 MG PO (08:49)
[2019-01-30] MEDS: buPROPion XL 150 MG TAB PO (08:49)
[2019-01-30] MEDS: ENOXAPARIN 40 MG/0.4 ML SYRINGE SUBCUT (08:58)
--- NOTE | 2019-01-30 15:40 | PC.NURSE ---
Addendum entered by Yana Farris R.N. 01/30/19 21:48: pt with increasing hiccups. Pt c/o breathing catching. Called and spoke to Dr. Ruano. Will give Ativan now, then compazine is now available prn. Bed alarm on. Original Note: ferny zavala pt reports significant decrease in hiccups. Pt also reports small amount of slimy yellow phlegm production.
[2019-01-31 00:16] VITALS: BP 133/83; PULSE 105
[2019-01-31] MEDS: PROCHLORPERAZINE 10 MG/2 ML VIAL IV ×2 (00:16→18:47)
[2019-01-31] MEDS: CEFTRIAXONE 2 GM/50 ML FROZ.PIGGY IV ×2 (04:54→18:43)
[2019-01-31 04:56] VITALS: BP 130/76; PULSE 102; RESP 18; TEMP 36.2; O2SAT 95
[2019-01-31] MEDS: AZITHROMYCIN 500 MG in DEXTROSE 5% IN WATER 250 ML IV (06:01)
--- NOTE | 2019-01-31 06:12 | PC.NURSE ---
Patient still had irritatinghiccups at midnight, IV Compazine given and was effective. SpO2 93-96% on RA, breath sounds CTA, occasional non-productive cough. Ambulates to BR, has 2 BMs. Scheduled IV abx given.
--- NOTE | 2019-01-31 07:49 | PM.PN.1 ---
Subjective Date Patient Seen: 01/31/19 Time Patient Seen: 07:49 Interval history: Patient had a rough evening yesterday. Hiccups returned with a vengeance. Ativan made some minor difference but later in the litigation claim representative hours Compazine was usual which seem somewhat more effective. Patient is somewhat somnolent and a little bit difficult to arouse this morning but quickly comes to full consciousness. Asks appropriate questions. Has no new complaints Exam Vital Signs (past 8 hours): - 01/30/19 23:50 01/31/19 00:16 01/31/19 04:56 Temperature 97.2 F L 97.2 F L Pulse Rate 105 H 105 H 102 H Respiratory Rate 18 18 Blood Pressure 133/83 133/83 130/76 Pulse Oximetry 95 95 Oxygen Delivery Method Room Air Oxygen Flow Rate 0 Objective Labs Result Diagrams: 01/29/19 04:15 01/29/19 04:15 Assessment & Plan Assessment & Plan narrative: 1. Pneumonia-continue current IV antibiotics. I would hope that his hiccups had really dissipated as a further sign of improvement in his overall pneumonia. Continue with the antibiotics for now. Hopefully things will settle down and he can be discharged home. If failing to improve would likely need bronchoscopy which would require transfer to a different facility. If seemingly improved with fails to fully resolve may also need outpatient bronchoscopy versus other investigative studies depending on clinical course Continue his other usual medications for now Note: Greater than 15 minutes was spent evaluating the patient on the floor, including examining the patient, discussing clinical course with clinical and nursing staff, reviewing clinical course in the computer, preparing documentation and writing orders for continued management of care, discussing status with family as appropriate, reviewing plans for the next 24 hours with both patient/family and nursing staff as appropriate. Quality VTE Deep Vein Thrombosis/Pulmonary Embolism Present on Admission: No
[2019-01-31 07:56] VITALS: BP 119/60; PULSE 90; RESP 16; TEMP 36.9; O2SAT 94
--- NOTE | 2019-01-31 08:02 | PC.NURSE ---
Addendum entered by Valdemar Franco R.N. 01/31/19 14:48: uneventful shift. a few minimal hiccups a couple times, resolved briskly spontaneously. Original Note: PATIENT SLOW TO AROUSE TO VOICE AND LIGHT FOOT SHAKING THIS AM WITH RN AND MD AT BEDSIDE. ONCE AWAKE, STATES OVERALL HE IS FEELING IMPROVED. HE STATES HIS PLUMBING IS WORKING. HAD 2 BM'S NOC SHIFT PER REPORT. DENIES HICCUPS SO FAR THIS AM. LUNGS CLEAR, SAT 94% ON RA. INTERMITT DRY COUGH.
[2019-01-31] MEDS: buPROPion XL 150 MG TAB PO (08:20)
[2019-01-31] MEDS: SERTRALINE 50 MG TABLET 100 MG PO (08:20)
[2019-01-31] MEDS: Dextroamphetamine-Amphetamine 30 MG 30 EACH PO (08:20)
[2019-01-31] MEDS: ENOXAPARIN 40 MG/0.4 ML SYRINGE SUBCUT (08:21)
[2019-01-31] MEDS: SODIUM CHLORIDE 0.9% FLUSH 10 ML IV ×2 (08:21→21:13)
[2019-01-31 12:30] VITALS: BP 124/75; PULSE 96; RESP 18; TEMP 36.6; O2SAT 96
--- NOTE | 2019-01-31 19:19 | PC.NURSE ---
ferny note pt c/o breathing freezing up. Pt still with frequent hiccups. Medicated with compazine. Left lower forearm IV site with redness along vein. New site started.
[2019-01-31] MEDS: DOCUSATE 100 MG CAPSULE 200 MG PO (21:13)
[2019-01-31 21:25] VITALS: BP 98/51; PULSE 96; RESP 16; TEMP 37.2; O2SAT 96
[2019-02-01 02:53] VITALS: BP 139/72; PULSE 102; RESP 18; TEMP 36.7; O2SAT 92
[2019-02-01] MEDS: SODIUM CHLORIDE 0.9% FLUSH 10 ML IV ×2 (05:30→08:26)
[2019-02-01] MEDS: CEFTRIAXONE 2 GM/50 ML FROZ.PIGGY IV (05:30)
[2019-02-01 06:06] VITALS: BP 110/64; PULSE 100; RESP 16; TEMP 36.7; O2SAT 94
[2019-02-01] MEDS: AZITHROMYCIN 500 MG in DEXTROSE 5% IN WATER 250 ML IV (06:20)
[2019-02-01 08:14] VITALS: BP 118/73; PULSE 94; RESP 20; TEMP 36.7; O2SAT 96
[2019-02-01] MEDS: ENOXAPARIN 40 MG/0.4 ML SYRINGE SUBCUT (08:25)
[2019-02-01] MEDS: Dextroamphetamine-Amphetamine 30 MG 30 EACH PO (08:25)
[2019-02-01] MEDS: SERTRALINE 50 MG TABLET 100 MG PO (08:26)
[2019-02-01] MEDS: buPROPion XL 150 MG TAB PO (08:26)
--- NOTE | 2019-02-01 08:36 | P.DS_ITS ---
History of Present Illness Chief complaint: hiccups x3 days Narrative: 63-year-old male admitted with pneumonia. He presented to the emerg ency department with persistent hiccups which are interfering with sleep and he is beginning to feel short of breath at least in part due to the ongoing hiccuping. He has been having hiccups for 2+ days. He had been seen in the clinic by myself on the 26 of January. He had persistent cough but lack of other findings and minimally abnormal exam resulted in a prescription for oral Levaquin. With that he reported some increased sputum production but then the hiccups started and he reassessed. Denies any real recurrent fever. Maybe some low-grade fever, just about 100 which is what we saw in the clinic as well. No other additional symptoms Patient is a lifelong nonsmoker No unusual recent travel Discharge Providers Date of admission: 01/29/19 06:44 Discharge Date: 02/01/19 Primary care physician: Bright Ruano MD Discharge provider: Bright Ruano MD Summary Discharge Diagnosis: 1. Community-acquired pneumonia 2. Hiccups 3. Adult hyperactivity syndrome 4. Generalized anxiety disorder Hospital Course: Patient was admitted to the hospital because of severe respiratory symptoms including cough and hiccuping likely due to complex masslike pneumonia in his left upper lobe. This was diagnosed emergency department. He was treated with IV antibiotics and medications to reduce his cough and/or hiccuping. Over the course of several days patient's cough improved his respiratory symptoms improved significantly although were not absent discharge. He was felt to be quite stable and ready for discharge. The complex an atypical nature of the findings on his imaging suggest close follow-up is warranted to ensure there is no other etiology for those findings. Patient will be sent home on dual antibiotic therapy as well as some oral Compazine for treatment of potential hiccups since that seem to be helpful in the hospital setting Below close follow-up as an outpatient to ensure complete resolution of the changes on his imaging and/or referred for further evaluation likely pulmonary Medicine with bronchoscopy etc Patient's other medical problems were not an active issue during this hospitalization and he will continue on his other medications as previously prescribed Status at Discharge Cognitive/behavioral status at discharge: at baseline, oriented Functional status at discharge: independent ambulation Overall status at discharge: patient is progressing back to baseline Exam Vital Signs (past 8 hours): - 02/01/19 02:53 02/01/19 06:06 02/01/19 08:14 Temperature 98.0 F 98.0 F 98.1 F Pulse Rate 102 H 100 H 94 H Respiratory Rate 18 16 20 Blood Pressure 139/72 110/64 118/73 Pulse Oximetry 92 94 96 Oxygen Delivery Method Room Air Oxygen Flow Rate 0 Narrative Exam Narrative: HEENT-unremarkable, normocephalic atraumatic Neck-no lymphadenopathy no bruits Lungs-clear anteriorly and posteriorly no wheezes no crackles good breath sounds Heart-regular rate and rhythm, no murmur, rub, or gallop. normal S1-S2 Abdomen-positive bowel tones, soft, nontender, nondistended, no hepatosplenomegaly, no masses palpable Neuro-normal to screening exam, gait not tested Extremities-no cyanosis clubbing or edema Objective Labs Result Diagrams: 01/29/19 04:15 01/29/19 04:15 Discharge Plan Discharge Plan Patient Disposition: Home Discharge Med Rec/Prescriptions Prescriptions: New prochlorperazine maleate [Compazine] 10 mg tablet 10 mg PO TID PRN (Reason: hiccups) Qty: 10 RF: 0 amoxicillin-pot clavulanate 500-125 mg tablet 1 tab PO BID Qty: 14 RF: 0 Continued dextroamphetamine-amphetamine 30 mg capsule,extended release 24hr 30 mg PO QAM RF: 0 sertraline 100 mg tablet 100 mg PO DAILY RF: 0 bupropion HCl [Wellbutrin XL] 150 mg tablet extended release 24 hr 150 mg PO QDAY Qty: 30 RF: 0 levofloxacin 500 mg tablet 500 mg PO DAILY Qty: 4 RF: 3 Follow up/Referrals: Bright Ruano MD [Primary Care Provider] - 2 Weeks Provider Discharge Instructions Diet: Diet as Tolerated Skin/Wound/Dressing Care Report to your healthcare provider any signs of infection, such as:: chills, fever Discharge Data Primary Care Provider: Bright Ruano Attending Provider: Bright Ruano Admit Date/Time: 01/29/19 06:44 Quality VTE Deep Vein Thrombosis/Pulmonary Embolism Present on Admission: No
--- NOTE | 2019-02-01 10:22 | CM.DPC ---
DCP/continued: Reviewed chart. Per MD notes patient is medically cleared to d/c home today. Met briefly with patient explained role. Patient reports that he is completely I in all ADL's and does not anticipate any needs today. P: Home. GWENDOLYN Carrion
== END 2019-02-01 10:00 | disposition home or self-care (01) | DRG 195 ==
LOC: ED 06:43 → AC 06:46 → ICU 07:29
PROVIDERS: Admitting Provider Family Medicine; Emergency Provider Emergency Medicine; Family Provider Internal Medicine; PCP Internal Medicine; Visit Provider Internal Medicine
DX: J18.9 Pneumonia, unspecified organism (principal); R06.6 Hiccough; F90.8 Attention-deficit hyperactivity disorder, other type; F41.1 Generalized anxiety disorder
CPT/HCPCS: 36415; 36591; 71045; 71275; 80053; 82550; 82553; 83605; 83735; 83880; 84145; 84484; 85025; 85379; 85610; 85730; 87040; 87797; 93005; 96365; 96367; 96375; 99223; 99233; 99238; 99284; 99285; C9113; J0696; J0780; J1650; J2060; Q9967

== ENCOUNTER → 2024-05-24 09:41 | Outpatient (CLI) | payer MEDICARE, OTHER, SELFPAY ==
[2024-03-15 13:02] VITALS: BMI 25.9
[2024-05-24 11:09] LABS: Add Manual Diff / Slide Review NO; Basophils Absolute Auto 0 /uL (0-100); Basophils Percent Auto 0.6 % (0-2); Eosinophils Absolute Auto 100 /uL (0-450); Eosinophils Percent Auto 1.7 % (2-4); Hematocrit 44.8 % (41-53); Lymphocytes Absolute Auto 1600 /uL (1100-4500); Lymphocytes Percent Auto 23.2 % (25-40); Mean Corpuscular HGB Conc 33.5 % (30-36); Mean Corpuscular Hemoglobin 31.4 PG (26-34); Mean Corpuscular Volume 93.6 fL (80-100); Monocytes Absolute Auto 500 /uL (0-900); Monocytes Percent Auto 6.9 % (3-14); Neutrophils Absolute Auto 4600 /uL (1500-7000); Neutrophils Percent Auto 67.6 % (50-75); Platelet Count 234 X10^3/uL (150-400); Red Blood Cell Count 4.78 X10^6/uL (4.5-5.9); Red Cell Distribution Width 13.7 % (11.6-14.8); White Blood Cell Count 6.8 X10^3/uL (4.5-11.0)
[2024-05-24 11:23] LABS: Alanine Aminotransferase 18 IU/L (<50); Albumin 4.2 g/dL (3.5-5.0); Albumin Globulin Ratio 1.8 (1.0-2.8); Alkaline Phosphatase 67 U/L (38-126); Aspartate Aminotransferase 27 IU/L (17-59); BUN Creatinine Ratio 18.7 (6-22); Bilirubin Total 0.7 mg/dL (0.2-1.3); Blood Urea Nitrogen 17 mg/dL (9-20); Calcium 9.2 mg/dL (8.4-10.2); Carbon Dioxide 26 mmol/L (22-32); Chloride 105 mmol/L (98-107); Cholesterol 150 mg/dL (140-199); Estimated Glomerular Filt Rate > 60 mL/min (>60); Globulin 2.3 g/dL (1.7-4.1); Glucose 99 mg/dL (80-110); HDL Cholesterol 61 mg/dL (40-60); HEMOLYSIS 22 (0-50); LDL Cholesterol Calculated 71 mg/dL (<100); Potassium 4.1 mmol/L (3.4-5.1); Sodium 138 mmol/L (137-145); Total Protein 6.5 g/dL (6.3-8.2); Triglycerides 91 mg/dL (35-150)
[2024-05-24 11:49] LABS: TSH w/ Reflex to FT4 1.72 uIU/mL (0.47-4.68)
[2024-05-24 11:52] LABS: Prostate Specific Antigen Scrn 2.12 ng/mL (0.1-4.0)
[2024-05-25 04:12] LABS: HBsAg Screen Negative (Negative); Hepatitis A Antibody IgM Negative (Negative); Hepatitis B Core Antibody IgM Negative (Negative); Hepatitis C Antibody Non Reactive (Non Reactive)
== END ==
PROVIDERS: Family Provider Internal Medicine; PCP Family Medicine; Referring Provider Family Medicine; Visit Provider Family Medicine
DX: K75.9 Inflammatory liver disease, unspecified (principal); Z79.899 Other long term (current) drug therapy; Z12.5 Encounter for screening for malignant neoplasm of prostate; Z86.61 Personal history of infections of the central nervous system; F90.2 Attention-deficit hyperactivity disorder, combined type; Z86.0101 Personal history of adenomatous and serrated colon polyps; L98.9 Disorder of the skin and subcutaneous tissue, unspecified
CPT/HCPCS: 36415; 80053; 80061; 80074; 84443; 85025; G0103

== ENCOUNTER 2024-06-12 10:32 | Day surgery (SDC) | payer MEDICARE, OTHER, SELFPAY ==
[2024-03-15 13:02] VITALS: BMI 25.9
--- NOTE | 2024-06-12 | PATH_ITS ---
[facility] Accession Number: [id number] No. of containers..03 Tissue . 01 Material submitted: . PART A: colon - CECUM POLYP PART B: colon - DESCENDING COLON POLYP PART C: rectosigmoid junction - RECTAL SIGMOID POLYP . 01 Diagnosis: Part A: CECUM POLYP: Tubular adenoma. . Part B: DESCENDING COLON POLYP: Tubular adenoma. . Part C: RECTAL SIGMOID POLYP: Hyperplastic polyp. [facility] 06/14/2024 1420 Local . 01 Electronically signed: . Marcelo Cali MD, Pathologist NPI- [id number] . 01 Gross description: . A. Received in formalin with two patient identifiers and cecum polyp, are three morel to brown soft tissue fragments ranging from 0.4 x 0.3 x 0.2 cm to 1.2 x 0.9 x 0.6 cm. Larger two inked and sectioned. Submitted entirely in A1-A2. . B. Received in formalin with two patient identifiers and descending colon polyp, is a single morel soft tissue fragment, 0.5 cm in greatest dimension, submitted in B1. . C. Received in formalin with two patient identifiers and rectosigmoid, is a single morel soft tissue fragment, 0.6 cm in greatest dimension, submitted in C1. ([id number]) /MRV 06/14/2024 1420 Local . 01 Pathologist provided ICD-10: D12.0, D12.4, K63.5 . 01 CPT . 666357, 386646, 039151 Specimen Comment: A courtesy copy of this report has been sent to [phone] Performed at: [address] [id number] MD Marcelo Cali MD Phone: [phone]
[2024-06-12 12:07] VITALS: BP 149/83; PULSE 98; RESP 12; TEMP 36.4; O2SAT 99
--- NOTE | 2024-06-12 12:24 | P.HP_ITS ---
History of Present Illness History of Present Illness Date Patient Seen: 06/12/24 Time Patient Seen: 12:24 Chief complaint: SDC Narrative: 69-year-old male reporting for colonoscopy today. Indicates a personal history of colon polyps and believes he is overdue for surveillance. I have not seen the prior colonoscopy. [facility] Medical History Skin lesion of hand History of meningitis Meningitis Generalized anxiety disorder Diverticulosis of colon Hx of adenomatous colonic polyps Inguinal hernia Cystocele Fever ADHD Neck arthritis Measles Hepatitis Near sighted Surgical History Anesthesia History of surgery Family History Brother Agent orange exposure Social History household members: spouse Smoking Status: Never smoker alcohol intake: current Meds Home Medications and Allergies Home Medications Medication Instructions Recorded Confirmed Type dextroamphetamine-amphetamine 15 tab PO 04/04/24 04/04/24 History mg tablet dextroamphetamine-amphetamine ER 1 cap PO QAM 04/04/24 04/04/24 History 25 mg 24hr capsule,extend release Allergies Allergy/AdvReac Type Severity Reaction Status Date / Time No Known Drug Allergies Allergy Verified 06/12/24 11:50 Review of Systems Review of Systems ROS: Yes All systems reviewed with the patient and are negative except as otherwise documented Exam Vital Signs (past 8 hours): - 06/12/24 12:07 Temperature 97.5 F L Pulse Rate 98 H Respiratory Rate 12 Blood Pressure 149/83 H Pulse Oximetry 99 Oxygen Delivery Method Room Air Oxygen Delivery Method Room Air Const General: cooperative HENMT Head: normal to inspection Eyes General: appearance normal, both eyes and all related structures Neck Neck: normal visual inspection Chest Chest: normal inspection of the chest Resp Effort & Inspection: normal respiratory effort Cardio Rate: regular rate GI Inspection: normal to inspection Skin General: no rashes or lesions noted Neuro General: patient alert and patient awake Extrem General: normal to inspection and no pedal edema Psych Appearance: grossly normal Assessment & Plan Assessment & Plan narrative: 69-year-old male with a personal history of colon polyps. Surveillance colonoscopy is pursued today. Time-Based Coding :: [TOTAL MINUTES] spent with patient and on the chart (including review of chart, obtaining history, exam, reviewing outside data, placing orders, documenting exam and treatment plan, and counseling patient) on [DATE].
--- NOTE | 2024-06-12 12:25 | PM.PREOP ---
Pre-operative Note Interval Note History & Physical reviewed/Exam performed by Physician: Yes Changes to H&P: No ASA Class (for procedural sedation): II
[2024-06-12 13:53] VITALS: BP 112/74; PULSE 84; RESP 15; TEMP 36.2; O2SAT 97
--- NOTE | 2024-06-12 13:53 | PM.OP.COLON ---
Operative Date/Time/Diagnoses Date of procedure: 06/12/24 Time of procedure: 13:53 Pre-op diagnosis: Colon polyp history Post-op diagnosis: same Procedure & Clinicians Study performed: Colonoscopy with hot snare polypectomy and Endoclip deployment along with cold snare polypectomy. Same procedure as scheduled: Yes Indications: Colon polyp history Surgeon: Devyn Munoz Procedure Notes SCOAP/Timeout: Done Procedure in detail: After the risks and benefits were explained, written and verbal informed consent was obtained. The patient was brought into the procedure room and placed into the left lateral decubitus position. Please see anesthesia notes for sedation details. Digital rectal examination was accomplished. The scope was introduced into the patient and advanced under direct visualization to the cecum as identified by the appendiceal orifice and ileocecal valve. The scope was slowly withdrawn to carefully examine the mucosa for any defects or lesions. Comprehensive imaging was accomplished throughout the rectum including the dentate line. The colon was decompressed, the scope was then removed from the patient who tolerated the procedure well. Pediatric colonoscope Bowel prep adequate Scope withdrawal time: 41 minutes Sedation minutes: 54 Complications: none Impression: The patient had an exceptionally redundant and tortuous colon. Navigation was challenging. In the cecum there was an approximately 10 mm sessile polyp removed with hot snare. The defect was closed with 3 Endoclips. This was challenging to obtain positioning on this polyp for clip deployment. This caused the procedure time to be prolonged. There was a sessile 5 mm polyp in the descending colon removed with cold snare. There was a 4 mm polyp in the rectosigmoid region also removed with cold snare. Mild internal hemorrhoids were noted. Grade 1. No additional pathology appreciated throughout. Endoscopic diagnosis 1. Multiple polyps 2. Tortuous colon 3. Grade 1 hemorrhoids Post-procedure Plan for aftercare: 1. Await histology 2. Repeat colonoscopy 3 years. Disposition: PACU
[2024-06-12 13:58] VITALS: BP 127/76; PULSE 80; RESP 13; O2SAT 97
[2024-06-12 14:05] VITALS: BP 121/81; PULSE 90; RESP 17; TEMP 36.2; O2SAT 97
== END 2024-06-12 14:14 | disposition home or self-care (01) ==
PROVIDERS: Family Provider Internal Medicine; PCP Family Medicine; Referring Provider Internal Medicine Gastroenterology; Visit Provider Internal Medicine Gastroenterology
PROC: 0DJD8ZZ Inspection of Lower Intestinal Tract, Via Natural or Artificial Opening Endoscopic (ICD-10-PCS; CPT 45378; principal; 2024-06-12 11:30)
DX: Z12.11 Encounter for screening for malignant neoplasm of colon (principal); Z86.0100 Personal history of colon polyps, unspecified; K64.0 First degree hemorrhoids; D12.0 Benign neoplasm of cecum; D12.4 Benign neoplasm of descending colon; K63.5 Polyp of colon
CPT/HCPCS: 45385; J2704